=== PATIENT | female | born 1990 | race American Indian/Alaskan Native ===

== ENCOUNTER 2021-07-16 23:12 | Emergency (ER) | payer SELFPAY ==
[2021-07-17 01:38] VITALS: BP 102/58
--- NOTE | 2021-07-18 10:01 | Electrocardiograph Report ---
[facility] Test Date: 2021-07-17 Test Time: 01:09:26 Pat Name: MOISES COURTNEY Department: Room: Gender: F Human Resources Designate: AMINATA : 1990 Requested By: ED DOC Order Number: [id number] Reading MD: Son Webster Measurements Intervals [place] Rate: 62 P: 84 GA: 202 QRS: 77 QRSD: 78 T: 70 QT: 441 QTc: 447 Interpretive Statements Sinus rhythm Borderline prolonged GA interval EARLY REPOLARIZATION No previous ECG available for comparison Electronically Signed On 07-18-2021 10:00:57 EDT by Son Webster
== END 2021-07-17 10:27 | disposition left against medical advice (07) ==
LOC: ED 23:12
DX: R07.9 Chest pain, unspecified (principal); Z53.21 Procedure and treatment not carried out due to patient leaving prior to being seen by health care provider
CPT/HCPCS: 93005